=== PATIENT | female | born 1975 | race Caucasian/White ===

== ENCOUNTER 2016-11-14 09:00 | Outpatient (CLI) | payer BC ==
[2016-11-14 14:07] LABS: BASOPHILS % (AUTO) 0.5 %; EOSINOPHILS # (AUTO) 0.1 10^3/uL (0.0-0.7); EOSINOPHILS % (AUTO) 1.2 %; HCT - HEMATOCRIT 35.1 % (37.0-47.0); HGB - HEMOGLOBIN 11.9 g/dL (12.0-16.0); LYMPHOCYTES # (AUTO) 1.6 10^3/uL (1.5-3.5); LYMPHOCYTES % (AUTO) 24.8 %; MEAN PLATELET VOLUME 9.7 fL (7.9-10.8); MONOCYTES # (AUTO) 0.3 10^3/uL (0.0-1.0); MONOCYTES % (AUTO) 4.6 %; NEUTROPHILS # (AUTO) 4.5 10^3/uL (1.5-6.6); NEUTROPHILS % (AUTO) 68.9 %; RED BLOOD COUNT 3.86 10^6/uL (4.20-5.40); RED CELL DISTRIBUTION WIDTH 12.8 % (12.0-15.0); UNCORRECTED WHITE BLOOD COUNT 6.6 x10^3/uL; WHITE BLOOD COUNT 6.6 x10^3/uL (4.8-10.8)
[2016-11-14 14:51] LABS: ALBUMIN/GLOBULIN RATIO 1.1 (1.0-2.2); BILIRUBIN,TOTAL 0.6 mg/dL (0.2-1.0); BUN - BLOOD UREA NITROGEN 14 mg/dL (6-20); CALCIUM 8.9 mg/dL (8.5-10.3); CARBON DIOXIDE - CO2 28 mmol/L (21-32); CHLORIDE 106 mmol/L (101-111); CHOLESTEROL 220 mg/dL; CREATININE 0.6 mg/dL (0.4-1.0); GFR - MDRD 111 (>89); GLUCOSE 82 mg/dL (70-100); HDL CHOLESTEROL 44 mg/dL; LDL/HDL RATIO 3.5 (<4.4); POTASSIUM 3.8 mmol/L (3.5-5.0); SODIUM 138 mmol/L (135-145); TOTAL PROTEIN 7.7 g/dL (6.7-8.2); TRIGLYCERIDES 106 mg/dL; VLDL CHOLESTEROL 21 mg/dL
[2016-11-14 15:02] LABS: HEMOGLOBIN A1C 0.39 g/dL
== END 2016-11-14 09:01 | disposition home or self-care (01) ==
LOC: LAB.WCP 09:00
PROVIDERS: ATTEND Family Medicine
DX: Z00.00 Encounter for general adult medical examination without abnormal findings (principal)
CPT/HCPCS: 36415; 80053; 80061; 83036; 84443; 85025

== ENCOUNTER 2017-04-10 15:15 | Outpatient (CLI) | payer BC ==
--- NOTE | 2017-04-11 18:36 | Mammography Report ---
DIGITAL SCREENING MAMMOGRAM: 04/10/2017 CLINICAL INDICATION: A 42-year-old with history of late childbearing for screening. COMPARISON: 06/2014 TECHNIQUE: Routine CC and MLO projections as well as bilateral laterally exaggerated craniocaudal views were obtained of the breasts. FINDINGS: Parenchymal tissue within both breasts is heterogeneously dense, which may lower the sensitivity of mammography; however, there are no dominant masses, suspicious microcalcifications, or secondary signs of malignancy. In comparison to the previous studies, there are no significant changes. ASSESSMENT: NO MAMMOGRAPHIC EVIDENCE OF MALIGNANCY. NO SIGNIFICANT INTERVAL CHANGES. RECOMMENDATION: Screening mammography is recommended annually. BIRADS category 1 - negative. STANDARD QUALIFYING STATEMENTS: 1. This examination was reviewed with the aid of Computed-Aided Detection (CAD). 2. A negative or benign imaging report should not delay biopsy if clinically suspicious findings are present. Consider surgical consultation if warranted. More than 5% of cancers are not identified by imaging. 3. Dense breasts may obscure an underlying neoplasm. TD: 04/11/2017 18:29
== END 2017-04-10 15:16 | disposition home or self-care (01) ==
LOC: DI 15:15
PROVIDERS: ATTEND Nurse Practitioner Obstetrics & Gynecology
DX: Z12.39 Encounter for other screening for malignant neoplasm of breast (principal)
CPT/HCPCS: 77067

== ENCOUNTER 2017-12-07 08:57 | Outpatient (CLI) | payer BC ==
[2017-12-07 13:19] LABS: CHOL/HDL RATIO 3.9 (<4.4); CHOLESTEROL 203 mg/dL; HDL CHOLESTEROL 52 mg/dL; LDL CHOLESTEROL,CALCULATED 136 mg/dL; LDL/HDL RATIO 2.6 (<4.4); VLDL CHOLESTEROL 15 mg/dL
== END 2017-12-07 08:58 | disposition home or self-care (01) ==
LOC: LAB.WCP 08:57
PROVIDERS: ATTEND Physician Assistant
DX: E78.5 Hyperlipidemia, unspecified (principal)
CPT/HCPCS: 36415; 80061; 83721

== ENCOUNTER 2018-06-22 19:14 | Emergency (ER) | payer BC ==
[2018-06-22 19:54] LABS: BASOPHILS # (AUTO) 0.1 10^3/uL (0.0-0.1); BASOPHILS % (AUTO) 0.8 %; EOSINOPHILS # (AUTO) 0.1 10^3/uL (0.0-0.7); EOSINOPHILS % (AUTO) 1.2 %; HGB - HEMOGLOBIN 12.1 g/dL (12.0-16.0); LYMPHOCYTES # (AUTO) 2.1 10^3/uL (1.5-3.5); LYMPHOCYTES % (AUTO) 26.7 %; MEAN CORPUSCULAR HEMOGLOBIN 30.3 pg (27.0-31.0); MEAN CORPUSCULAR HGB CONC 33.5 g/dL (32.0-36.0); MEAN CORPUSCULAR VOLUME 90.6 fL (81.0-99.0); MEAN PLATELET VOLUME 9.7 fL (7.9-10.8); MONOCYTES # (AUTO) 0.6 10^3/uL (0.0-1.0); NEUTROPHILS # (AUTO) 5.1 10^3/uL (1.5-6.6); NEUTROPHILS % (AUTO) 64.3 %; PLT - PLATELET COUNT 194 10^3/uL (130-450); RED BLOOD COUNT 4.01 10^6/uL (4.20-5.40); RED CELL DISTRIBUTION WIDTH 12.7 % (12.0-15.0)
[2018-06-22 19:55] LABS: BILIRUBIN,URINE NEGATIVE (NEGATIVE); GLUCOSE, URINE (UA) NEGATIVE (NEGATIVE); KETONES,URINE (UA) NEGATIVE (NEGATIVE); LEUKOCYTE ESTERASE, URINE NEGATIVE (NEGATIVE); NITRITE,URINE NEGATIVE (NEGATIVE); OCCULT BLOOD,URINE NEGATIVE (NEGATIVE); PROTEIN,URINE NEGATIVE (NEGATIVE); UROBILINOGEN,URINE 0.2 (NORMAL) E.U./dL (NORMAL)
[2018-06-22 19:57] LABS: CLARITY,URINE CLEAR (CLEAR)
[2018-06-22 20:09] LABS: ALBUMIN 4.2 g/dL (3.2-5.5); ALBUMIN/GLOBULIN RATIO 1.1 (1.0-2.2); BILIRUBIN,TOTAL 0.5 mg/dL (0.2-1.0); CALCIUM 9.3 mg/dL (8.5-10.3); CREATININE 0.7 mg/dL (0.4-1.0); TOTAL PROTEIN 8.2 g/dL (6.7-8.2)
--- NOTE | 2018-06-22 20:31 | XRAY Report ---
Reason: chest pain Procedure Date: 06/22/2018 Accession Number: [id number] / [id number] Procedure: XR - Chest 1 View X-Ray CPT Code: 75683 FULL RESULT: EXAM: CHEST RADIOGRAPHY EXAM DATE: 06/22/2018 07:59 PM. CLINICAL HISTORY: Shortness of breath and chest pressure for 2 days. COMPARISON: None. TECHNIQUE: 1 view. FINDINGS: Lungs/Pleura: No focal opacities evident. No pleural effusion. No pneumothorax. Mediastinum: Within exam limitations, the cardiomediastinal contour is normal. Other: No osseous abnormality identified. IMPRESSION: Normal single view chest. RADIA
--- NOTE | 2018-06-22 20:37 | ED Physician Documentation ---
PD HPI CHEST PAIN - Stated complaint Stated Complaint: SOA/CHEST PRESSURE - Chief complaint Chief Complaint: Cardiac - History obtained from History obtained from: Patient, Family - History of Present Illness Timing - onset: How many days ago Timing - onset during: Rest Timing - duration: Days (3) Timing - details: Abrupt onset, Now resolved, Waxing and waning Quality: Pressure, Aching Location: Substernal, Right chest Radiation: Back Improved by: Rest Worsened by: Exertion, Movement, Position Associated symptoms: Shortness of air. No: Diaphoresis, Nausea, Vomiting, Feeli ng faint / dizzy Similar symptoms before: Has not had sx before Recently seen: Not recently seen Review of Systems Constitutional: denies: Fever, Chills Eyes: denies: Decreased vision Ears: denies: Ear pain Nose: denies: Rhinorrhea / runny nose, Congestion Throat: denies: Sore throat Cardiac: reports: Chest pain / pressure. denies: Palpitations, Pedal edema, Calf pain Respiratory: reports: Dyspnea. denies: Cough GI: denies: Abdominal Pain, Nausea, Vomiting : denies: Dysuria, Frequency Skin: denies: Rash Musculoskeletal: denies: Neck pain, Back pain, Extremity pain Neurologic: denies: Generalized weakness, Focal weakness, Numbness PD PAST MEDICAL HISTORY - Past Medical History Past Medical History: Yes Cardiovascular: None Respiratory: None Neuro: None Endocrine/Autoimmune: None GI: None BAG PRESSER: None : None HEENT: None Psych: Depression, Anxiety Musculoskeletal: None Derm: None - Past Surgical History Past Surgical History: No - Allergies Allergies/Adverse Reactions: Allergies Allergy/AdvReac Type Severity Reaction Status Date / Time No Known Drug Allergies Allergy Verified 06/22/18 19:18 - Social History Does the pt smoke?: No Smoking Status: Never smoker Does the pt drink ETOH?: No Does the pt have substance abuse?: No - Immunizations Immunizations are current?: Yes PD ED PE NORMAL - Vitals Vital signs reviewed: Yes (hypertensive mild systolic) - General General: Alert and oriented X 3, No acute distress, Well developed/nourished - HEENT HEENT: Atraumatic, PERRL, EOMI - Neck Neck: Supple, no meningeal sign, No bony TTP - Cardiac Cardiac: RRR, No murmur - Respiratory Respiratory: No respiratory distress, Clear bilaterally - Abdomen Abdomen: Soft, Non tender - Back Back: No CVA TTP, No spinal TTP - Derm Derm: Normal color, Warm and dry, No rash - Extremities Extremities: No deformity, No edema - Neuro Neuro: Alert and oriented X 3, refuse laborer 2-12 intact, No motor deficit, No sensory deficit, Normal speech Eye Opening: Spontaneous Motor: Obeys Commands Verbal: Oriented GCS Score: 15 - Psych Psych: Normal mood, Normal affect Results - Vitals Vitals: Vital Signs - 24 hr 06/22/18 06/22/18 19:18 21:10 Temperature 36.6 C Heart Rate 71 84 Respiratory 16 14 Rate Blood Pressure 135/69 H 116/69 O2 Saturation 100 100 Oxygen O2 Source Room air - EKG (time done) 1920 Rate: Rate (enter#) (79) Rhythm: NSR, LAE Ischemia: Normal ST segments Compare to prior EKG: Old EKG unavailable Computer interpretation: Agree with computer - Labs Labs: Laboratory Tests 06/22/18 06/22/18 06/22/18 19:30 19:30 19:30 WBC 8.0 RBC 4.01 L Hgb 12.1 Hct 36.3 L MCV 90.6 MCH 30.3 MCHC 33.5 RDW 12.7 Plt Count 194 MPV 9.7 Neut # (Auto) 5.1 Lymph # (Auto) 2.1 [place] # (Auto) 0.6 Eos # (Auto) 0.1 Baso # (Auto) 0.1 Absolute Nucleated RBC 0.00 Nucleated RBC % 0.0 D-Dimer Sodium 137 Potassium 3.5 Chloride 99 L Carbon Dioxide 28 Anion Gap 10.0 BUN 20 Creatinine 0.7 Estimated GFR (MDRD) 92 Glucose 91 Calcium 9.3 Total Bilirubin 0.5 AST 28 ALT 17 Alkaline Phosphatase 84 Troponin I B-Natriuretic Peptide Total Protein 8.2 Albumin 4.2 Globulin 4.0 Albumin/Globulin Ratio 1.1 Lipase 47 Urine Color YELLOW Urine Clarity CLEAR Urine pH 7.0 Ur Specific [place] <=1.005 Urine Protein NEGATIVE Urine Glucose (UA) NEGATIVE Urine Ketones NEGATIVE Urine Occult Blood NEGATIVE Urine Nitrite NEGATIVE Urine Bilirubin NEGATIVE Urine Urobilinogen 0.2 (NORMAL) Ur Leukocyte Esterase NEGATIVE Ur Microscopic Review NOT INDICATED Urine Culture Comments NOT INDICATED 06/22/18 06/22/18 06/22/18 19:30 19:30 19:30 WBC RBC Hgb Hct MCV MCH MCHC RDW Plt Count MPV Neut # (Auto) Lymph # (Auto) [place] # (Auto) Eos # (Auto) Baso # (Auto) Absolute Nucleated RBC Nucleated RBC % D-Dimer 208.2 Sodium Potassium Chloride Carbon Dioxide Anion Gap BUN Creatinine Estimated GFR (MDRD) Glucose Calcium Total Bilirubin AST ALT Alkaline Phosphatase Troponin I < 0.04 B-Natriuretic Peptide 10 Total Protein Albumin Globulin Albumin/Globulin Ratio Lipase Urine Color Urine Clarity Urine pH Ur Specific [place] Urine Protein Urine Glucose (UA) Urine Ketones Urine Occult Blood Urine Nitrite Urine Bilirubin Urine Urobilinogen Ur Leukocyte Esterase Ur Microscopic Review Urine Culture Comments - Rads (name of study) chest Radiology: Prelim report reviewed (Impression: Normal single view chest.), EMP read indepedently, See rad report PD MEDICAL DECISION MAKING - ED course Complexity details: reviewed old records, reviewed results, re-evaluated patient, considered differential, d/w patient, d/w family ED course: 43-year-old previously healthy filament female with a pain in her right shoulder that started after a trip to [place]. She relates that she was pushing a heavy cart and she felt that was likely the reason she had this pain in her shoulder the next day. It seemed to go away when she took some ibuprofen. She subsequently developed some pressure in her chest which is now resolved and I suspect this pressure in her chest may been related to esophageal irritation from the ibuprofen itself. I discussed all these findings with the patient her diagnostic work-up is entirely unremarkable d-dimer is negative. She is currently asymptomatic and will follow-up as needed. Departure - Departure Disposition: 01 Home, Self Care Clinical Impression: Atypical chest pain Condition: Stable Instructions: ED Chest Pain Atypical Unkn Cause Follow-Up: Mariella Suero MD [Primary Care Provider] -
[2018-06-22 21:10] VITALS: BP 116/69
== END 2018-06-22 21:26 | disposition home or self-care (01) ==
LOC: ED 19:14
DX: R07.89 Other chest pain (principal); M25.511 Pain in right shoulder
CPT/HCPCS: 36415; 71045; 80053; 81001; 81003; 83690; 83880; 84484; 85025; 85379; 87086; 93005; 99283; 99284

== ENCOUNTER 2018-12-13 09:50 | Outpatient (CLI) | payer BC ==
[2018-12-13 12:19] LABS: BASOPHILS % (AUTO) 0.3 %; EOSINOPHILS # (AUTO) 0.1 10^3/uL (0.0-0.7); EOSINOPHILS % (AUTO) 1.3 %; LYMPHOCYTES # (AUTO) 1.4 10^3/uL (1.5-3.5); LYMPHOCYTES % (AUTO) 22.2 %; MEAN CORPUSCULAR HEMOGLOBIN 30.9 pg (27.0-31.0); MEAN CORPUSCULAR HGB CONC 32.2 g/dL (32.0-36.0); MEAN CORPUSCULAR VOLUME 96.1 fL (81.0-99.0); MEAN PLATELET VOLUME 11.5 fL (7.9-10.8); MONOCYTES # (AUTO) 0.4 10^3/uL (0.0-1.0); MONOCYTES % (AUTO) 7.1 %; NEUTROPHILS # (AUTO) 4.2 10^3/uL (1.5-6.6); NEUTROPHILS % (AUTO) 68.8 %; PLT - PLATELET COUNT 215 10^3/uL (130-450); RED BLOOD COUNT 3.88 10^6/uL (4.20-5.40); RED CELL DISTRIBUTION WIDTH 11.9 % (12.0-15.0); WHITE BLOOD COUNT 6.1 x10^3/uL (4.8-10.8)
[2018-12-13 12:26] LABS: ALBUMIN 4.1 g/dL (3.2-5.5); ALBUMIN/GLOBULIN RATIO 1.1 (1.0-2.2); BILIRUBIN,TOTAL 0.5 mg/dL (0.2-1.0); CALCIUM 9.6 mg/dL (8.5-10.3); CREATININE 0.5 mg/dL (0.4-1.0)
[2018-12-13 12:33] LABS: HCG,QUALITATIVE BLOOD NEGATIVE
== END 2018-12-13 23:59 | disposition home or self-care (01) ==
LOC: LAB.WCP 09:50
PROVIDERS: ATTEND Family Medicine
DX: R53.83 Other fatigue (principal)
CPT/HCPCS: 36415; 80053; 84443; 84703; 85025

== ENCOUNTER 2019-04-10 19:35 | Outpatient (CLI) | payer OTHER | END 2019-04-10 19:36 | disposition home or self-care (01) | LOC: SC 19:35 | PROVIDERS: ATTEND Internal Medicine Pulmonary Disease | DX: G47.10 Hypersomnia, unspecified (principal); R51 Headache; R06.83 Snoring; E66.3 Overweight; Z68.27 Body mass index [BMI] 27.0-27.9, adult | CPT/HCPCS: 95810 ==

== ENCOUNTER 2019-04-18 10:13 | Outpatient (CLI) | payer OTHER ==
--- NOTE | 2019-04-18 11:01 | SLEEP CARE CONSULTATION ---
Information from patient questionnaire entered by Jackie Phipps. I have reviewed and concur with the information entered by Jackie Phipps. This document represents the service I personally performed and the decisions made by me, Kari Munoz RN, MSN, TELEVISION ENGINEER. History of Present Illness Initial [place] Sleepiness Scale score: 11 Current [place] Sleepiness Scale score: 13 Additional HPI information: KAYLEE OLIVERA returns with her young kenaner for follow up and results of the recently performed polysomnography. I explained the pathophysiology behind obstructive sleep apnea. Patient does not have sleep apnea and was advised how weight gain could increase the risk of developing sleep apnea in the future. I strongly encouraged the patient to lose some weight. Patient has light snoring. Snoring can be reduced by weight loss. Weight loss is best achieved with diet consult especially since she has been struggling with weight gain the last 2 years. Patient instructed to contact PCP for referral. Snoring can also be treated with an oral appliance from a dentist. Advised to check insurance coverage. In addition, an ENT evaluation can be do to see if other treatment is indicated. Patient counseled not drink alcohol less than 4 hours before bedtime as it can increase snoring and apnea. Patient was cautioned about risks of drowsy driving until sleepiness symptoms resolve. Patient denies drowsy driving. [facility] patient education on snoring and sleep apnea given and reviewed. wake time is usually 6:30 - 7am and bedtime is about 10ish. Importance of sleep hygiene practices discussed as noted in [facility] HOw to Sleep better pamphlet given. Sleep Study - Results Polysomnography/Home Sleep Study results: The quality of the study is good. The patient had slightly reduced sleep efficiency due to sleep onset insomnia. Except for mild sleep fragmentation, the sleep architecture was normal. Respiratory monitoring showed no significant sleep disordered breathing (AHI = 0.5) or hypoxia (jose eduardo oxygen saturation of 94%). The patient slept adequately in supine position (supine AHI = 1.2; non- supine = 0.00). Snore was very light in intensity. There was no significant periodic leg movement of sleep. Cardiac rhythm was normal sinus rhythm without significant arrhythmia. No abnormal behavior (parasomnia) observed during the night. Allergies and Home Medications Known drug allergies: No Home medication list reviewed: Yes (no changes) Review of Systems Review of systems same as previous: Yes Physical Exam Blood Pressure: 96/70 Cuff size: regular Heart Rate: 77 O2 Saturation: 98 Height: 5 ft 1 in Weight: 146 lb 12.8 oz Body Mass Index: 27.7 BMI Classification: Overweight Impression and Plan Snoring, light, but no significant sleep disordered breathing. Patient advised that often weight loss will reduce snoring as well as apnea risk. An oral appliance can also be used for snoring. This would require a dental consultation. Patient cautioned not to use other online appliances as can cause bite issues. Patient not interested in oral appliance. An ENT consult can also be helpful to determine if any other treatment is an option but patient denies any difficulty breathing through nose. She has a regular sleep schedule and is still waking unrefreshed and fatigued. Thus she is advised to follow up with her PCP for further evaluation. * Attempt to lose weight * Avoid alcohol consumption near bedtime * The patient is cautioned about driving until sleepiness is completely resolved. * Follow up with PCP for further evaluation of fatigue * Return as needed. Time Spent with Patient (minutes): 25 I spent 100% of this visit face to face with the patient with greater than 50% of this was spent time counseling the patient and coordination of care.
[2019-04-18 11:02] VITALS: BP 96/70
== END 2019-04-18 10:14 | disposition home or self-care (01) ==
LOC: SC 10:13
PROVIDERS: ATTEND Nurse Practitioner Family
DX: R06.83 Snoring (principal); G47.10 Hypersomnia, unspecified; E66.3 Overweight; Z68.27 Body mass index [BMI] 27.0-27.9, adult; R53.83 Other fatigue
CPT/HCPCS: 99212; 99214

== ENCOUNTER 2019-04-29 11:28 | Outpatient (CLI) | payer OTHER ==
--- NOTE | 2019-04-30 07:21 | Mammography Report ---
Reason: ROUTINE MAMMO Procedure Date: 04/29/2019 Accession Number: [id number] / [id number] Procedure: MGN - Screening Mammo w/Kelvin CPT Code: Final Report FULL RESULT: EXAM: Screening Mammo w/Kelvin DATE: 04/29/2019 11:58 AM CLINICAL HISTORY: Screening encounter. History of early menses. History of late childbearing. TECHNIQUE: (B) - Bilateral CC, laterally exaggerated CC, MLO views were obtained. COMPARISON: 04/10/2017 and 07/02/2014. PARENCHYMAL PATTERN: (D) - The breast(s) demonstrate(s) heterogeneously dense fibroglandular parenchyma. FINDINGS: There are no suspicious masses, calcifications, or areas of distortion. IMPRESSION: Negative examination. BI-RADS category 1. RECOMMENDATION: (ANNUAL) - Recommend routine annual screening mammography. BI-RADS CATEGORY: (1) - Negative. STANDARD QUALIFYING STATEMENTS: 1. This examination was not reviewed with the aid of Computer-Aided Detection (CAD). 2. A negative or benign imaging report should not preclude biopsy if clinically suspicious findings are present. 3. Dense breasts may obscure an underlying neoplasm. 4. This examination was reviewed with the aid of 3D breast imaging (tomosynthesis).
== END 2019-04-29 11:29 | disposition home or self-care (01) ==
LOC: DI.N 11:28
PROVIDERS: ATTEND Nurse Practitioner Obstetrics & Gynecology
DX: Z12.31 Encounter for screening mammogram for malignant neoplasm of breast (principal)
CPT/HCPCS: 77063; 77067

== ENCOUNTER 2019-12-06 08:00 | Outpatient (CLI) | payer OTHER ==
[2019-12-06 20:16] LABS: FOLLICLE STIMULATING HORMONE 6.11 mIU/mL
== END 2019-12-06 23:59 | disposition home or self-care (01) ==
LOC: LAB.WCP 08:00
PROVIDERS: ATTEND Physician Assistant
DX: R53.83 Other fatigue (principal); Z78.0 Asymptomatic menopausal state
CPT/HCPCS: 36415; 82670; 83001; 84443

== ENCOUNTER 2020-05-04 15:11 | Outpatient (CLI) | payer OTHER ==
--- NOTE | 2020-05-04 18:40 | Ultrasound Report ---
PROCEDURE: Pelvic w/Transvaginal INDICATIONS: MENORRHAGIA TECHNIQUE: Real-time scanning was performed of the pelvic organs, with image documentation. Additional endovagi nal scanning was necessary due to incomplete visualization of the adnexal and endometrial structures by transabdominal scanning. COMPARISON: None. FINDINGS: No pathologic free abdominal or pelvic fluid. Uterus: Uterus is normal in size at 10.5 x 6.6 x 4.9 cm, volume of 1 74 cc. Mid posterior subserosal fibroid measuring 1.5 cm. The endometrium measures 11 mm in combined thickness. Trilaminar. [place] n cysts. Trace fluid in the cervical canal. Ovaries: Within normal limits. Blood flow seen in both ovaries. Right ovary measures 4.1 x 2 x 2 cm, volume of 9 cc. -Mildly complex right ovarian cyst measuring at 2.3 x 2 x 1.9 cm. There is a thin septation. No mural nodule. Left ovary measures 3 x 2.5 x 2.5 cm, volume of 10 cc. IMPRESSION: 1. Endometrium measures 11 mm. 2. Small posterior subserosal fibroid. 3. Right ovarian cyst with a thin septation measuring 2.3 cm. Reviewed by: Rob Washington MD on 05/04/2020 5:38 PM DELILAH Approved by: Rob Washington MD on 05/04/2020 5:38 PM DELILAH Station ID: [id number]
== END 2020-05-04 15:12 | disposition home or self-care (01) ==
LOC: DI 15:11
PROVIDERS: ATTEND Nurse Practitioner Obstetrics & Gynecology
DX: D25.2 Subserosal leiomyoma of uterus (principal); N83.201 Unspecified ovarian cyst, right side

== ENCOUNTER 2020-05-25 10:30 | Outpatient (CLI) | payer OTHER ==
--- NOTE | 2020-05-26 08:12 | Mammography Report ---
BILATERAL DIGITAL SCREENING MAMMOGRAM 3D/2D: 05/25/2020 CLINICAL: Routine screening. Comparison is made to exams dated: 04/29/2019 mammogram, 04/10/2017 mammogram, and 07/02/2014 mammogram - [facility]. The tissue of both breasts is heterogeneously dense. This may lower the sensitivity of mammography. There is an irregular asymmetry in the right breast middle depth inferior region seen on the mediolat eral oblique view only. No other significant masses, calcifications, or other findings are seen in either breast. IMPRESSION: INCOMPLETE: NEEDS ADDITIONAL IMAGING EVALUATION The irregular asymmetry in the right breast is indeterminate. Additional views with possible ultrasound are recommended. This exam was interpreted at Station ID: [id number]. NOTE: For mammograms, a report in lay terms will be sent to the patient. Approximately 15% of breast malignancies will not be visualized mammographically. In the management of a palpable breast mass, a negative mammogram must not discourage biopsy of a clinically suspicious lesion. Electronically Signed By: Rob Washington M.D. slc/:05/25/2020 12:03:51 ACR BI-RADS Category 0: Incomplete 3340F PARENCHYMAL PATTERN: (D) - The breast(s) demonstrate(s) heterogeneously dense fibroglandular pareviy ma. BI-RADS CATEGORY: (0) - 0 Mammo and [place] [id number] Immediate follow-up LATERALITY: (B)
== END 2020-05-25 10:31 | disposition home or self-care (01) ==
LOC: DI.N 10:30
PROVIDERS: ATTEND Nurse Practitioner Obstetrics & Gynecology
DX: Z12.31 Encounter for screening mammogram for malignant neoplasm of breast (principal); N64.89 Other specified disorders of breast

== ENCOUNTER 2020-06-03 08:00 | Outpatient (CLI) | payer OTHER | END 2020-06-03 23:59 | disposition home or self-care (01) | LOC: LAB.N 08:00 | PROVIDERS: ATTEND Family Medicine | DX: R30.0 Dysuria (principal) | CPT/HCPCS: 87086 ==

== ENCOUNTER 2020-06-12 09:20 | Outpatient (CLI) | payer OTHER ==
--- NOTE | 2020-06-15 11:36 | Mammography Report ---
UNILATERAL RIGHT DIGITAL DIAGNOSTIC MAMMOGRAM 3D/2D: 06/12/2020 CLINICAL: Patient returns today to evaluate a focal asymmetry in the right breast. Comparison is made to exams dated: 05/25/2020 mammogram, 04/29/2019 mammogram, and 04/10/2017 mammogram - [facility]. The tissue of right breast is heterogeneously dense. This may lower t he sensitivity of mammography. There is a questionable 8 mm irregular equal density asymmetry with an obscured margin in the right b reast middle depth inferior region seen on the mediolateral oblique view only. This is increased in size. No other significant masses or calcifications are seen in the breast. IMPRESSION: INCOMPLETE: NEEDS ADDITIONAL IMAGING EVALUATION The 8 mm asymmetry in the right breast has a differential diagnosis of clustered cysts or fibroglandu lar tissue but remains . An ultrasound is recommended. This was performed immediately following thi s exam. This exam was interpreted at Station ID: [id number]. NOTE: For mammograms, a report in lay terms will be sent to the patient. Approximately 15% of breast malignancies will not be visualized mammographically. In the management of a palpable breast mass, a negative mammogram must not discourage biopsy of a clinically suspicious lesion. Electronically Signed By: Martina mayo/:06/12/2020 10:04:23 ACR BI-RADS Category 0: Incomplete 3340F PARENCHYMAL PATTERN: (D) - The breast(s) demonstrate(s) heterogeneously dense fibroglandular dustin [place]. BI-RADS CATEGORY: (0) - 0 Ultrasound [id number] Immediate follow-up LATERALITY: (B)
--- NOTE | 2020-06-15 11:37 | Ultrasound Report ---
LIMITED ULTRASOUND OF RIGHT BREAST: 06/12/2020 CLINICAL: Short term follow up of the right breast. Comparison is made to exams dated: 05/25/2020 mammogram and 06/12/2020 mammogram - [facility]. Color flow and real-time ultrasound of the right breast 6 o'clock region were performed. [place] scale images of the real-time examination were reviewed. There is 1 cm x 0.8 cm x 0.4 cm focal duct ectasia vs cyst in the right breast at 6 o'clock middle de pth 4 cm from the nipple. This structure displays posterior acoustic enhancement, no internal echos or debris . This correlates with mammography findings. Color flow imaging demonstrates that there i s no vascularity present. IMPRESSION: BENIGN There is no sonographic evidence of malignancy. The 1 cm cystic structure in the right breast corresponds to the mammographic finding, is either a cy st adjacent to a duct or focal duct ectasia and is benign. Return to annual mammogram screening schedule is recommended. Findings and recommendations were conveyed to the patient at time of exam. This exam was interpreted at Station ID: [id number]. Electronically Signed By: Martina mayo/:06/12/2020 10:39:44 Ultrasound BI-RADS: 2 Benign BI-RADS CATEGORY: (2) - 2 Mammogram [id number] return to screening LATERALITY: (B)
== END 2020-06-12 09:21 | disposition home or self-care (01) ==
LOC: DI 09:20
PROVIDERS: ATTEND Nurse Practitioner Obstetrics & Gynecology
DX: R92.8 Other abnormal and inconclusive findings on diagnostic imaging of breast (principal)